=== PATIENT | male | born 2000 | race African-American/Black ===

== ENCOUNTER 2020-10-25 07:46 | Emergency (ER) | payer SELFPAY ==
[~2020-10-25] VITALS: Ht 180.3 cm; Wt 65.8 kg
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
[2020-10-25] MEDS ORDERED: LIDOCAINE HCL 1% LOCAL INJ 20 ML VIAL ONE (09:12)
== END 2020-10-25 08:30 | disposition left against medical advice (07) ==
LOC: ER 08:00
DX: S09.93XA Unspecified injury of face, initial encounter (principal)
CPT/HCPCS: J2001

== ENCOUNTER 2020-10-25 09:05 | Emergency (ER) | payer SELFPAY ==
[~2020-10-25] VITALS: Ht 180.3 cm; Wt 65.8 kg
--- OUTSIDE RECORDS SUMMARY | 2020-10-25 09:54 | XMS REPORT | Continuity of Care Document ---
Author Author [facility] Organization [facility] Address [address] [place] [id number] Phone Unavailable Care Team Providers Care Administrative Secretary Name Role Phone NO, PCP PCP Unavailable Problems Condition Name Condition Details Condition Category Status Onset Date Resolution Date Last Treatment Date Treating Clinician Comments Source Acute anaphylaxis Problem Active [facility] Lip laceration Problem Active C [facility] Allergies, Adverse Reactions, Alerts This patient has no known allergies or adverse reactions. Social History Social Habit Start Date Stop Date Quantity Comments Source Sex Assigned At 2000 00:00:00 2000 00:00:00 Male [facility] Medications This patient has no known medications. Vital Signs Vital Name Observation Time Observation Value Comments Source Oxygen saturation by Pulse oximetry 2020-10-25 07:49:00 100 /min [facility] Weight 2020-10-25 07:49:00 145 [lb_av] [facility] BMI (Body Mass Index) 2020-10-25 07:49:00 20.2 kg/m2 [facility] Procedures This patient has no known procedures. Plan of Care Planned Activity Planned Date Details Comments Source Instructions Laceration [facility] Encounters Start Date/Time End Date/Time Encounter Type Admission Type Attendi [facility] Facility Care Department Encounter ID Source 2020-10-25 08:00:00 2020-10-25 08:30:00 Departed Emergency Room [facility] [id number] [facility] Results This patient has no known results.
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
== END 2020-10-25 09:43 | disposition home or self-care (01) ==
LOC: ER 09:16
DX: S01.511A Laceration without foreign body of lip, initial encounter (principal); Y04.0XXA Assault by unarmed brawl or fight, initial encounter; Y92.89 Other specified places as the place of occurrence of the external cause; F17.210 Nicotine dependence, cigarettes, uncomplicated
CPT/HCPCS: 99283